=== PATIENT | male | born 1965 | race Caucasian/White ===

== ENCOUNTER 2018-12-03 09:11 | Emergency (ER) | payer OTHER ==
[~2018-12-03] VITALS: Ht 182.9 cm; Wt 92.5 kg
[~2018-12-03 09:11] MED LIST: ACET500 PO; ALBU90I INH; ALBU90OI INH; ALBU90OI6 INH; AZIT250 PO; DIPH50 PO; FLUSAL5005 IH; FLUT110OIA INH; IBUP800 PO; NAPR500 PO; NICO21TP; PRED20 PO; TRAM50 PO
[2018-12-03 10:20] LABS: BASOPHILS ABSOLUTE AUTO 0.05 K/mm3 (0.00-0.23); BASOPHILS PERCENT AUTO 1 % (0-2); EOSINOPHILS ABSOLUTE AUTO 0.38 K/mm3 (0.00-0.68); EOSINOPHILS PERCENT AUTO 6 % (0-6); Hematocrit 43.4 % (37.0-53.0); Hemoglobin 13.8 g/dL (13.5-17.5); IMMATURE GRAN ABSOLUTE AUTO 0.02 K/mm3 (0.00-0.10); IMMATURE GRAN PERCENT AUTO 0 % (0-1); LYMPHOCYTES ABSOLUTE AUTO 1.19 K/mm3 (0.84-5.20); LYMPHOCYTES PERCENT AUTO 18 % (21-46); MONOCYTES ABSOLUTE AUTO 0.46 K/mm3 (0.16-1.47); MONOCYTES PERCENT AUTO 7 % (4-13); Mean Corpuscular HGB 29.9 pg (26.0-34.0); Mean Corpuscular HGB Conc 31.8 g/dL (31.5-36.5); Mean Corpuscular Volume 94 fL (80-100); Mean Platelet Volume 12.1 fL (9.1-12.4); NEUTROPHILS ABSOLUTE AUTO 4.38 K/mm3 (1.96-9.15); NEUTROPHILS PERCENT AUTO 68 % (41-73); Platelet Count 144 K/mm3 (150-400); RDW Coefficient Variation 12.3 % (11.7-14.2); RDW Standard Deviation 42.5 fL (35.1-46.3); Red Blood Cell Count 4.61 M/mm3 (4.30-5.90); White Blood Cell Count 6.48 K/mm3 (4.00-11.30)
[2018-12-03 10:48] LABS: Alanine Aminotransfer (ALT/SGP 28 U/L (12-78); Albumin/Globulin Ratio 1.1 (0.8-1.8); Alk Phos 58 U/L (50-136); Anion Gap 7 mmol/L (6-16); Aspartate Aminotrans (AST/SGOT 23 U/L (12-37); Bilirubin, Total 0.3 mg/dL (0.1-1.0); Blood Urea Nitrogen 17 mg/dL (8-24); Bun/Creatinine Ratio 17.2 (12.0-20.0); CO2, Blood 26 mmol/L (21-32); Calcium, Blood 8.6 mg/dL (8.5-10.1); Chloride, Blood 107 mmol/L (98-108); Creatinine, Blood 0.99 mg/dL (0.60-1.20); Globulin, Blood 3.6 g/dL (2.2-4.0); Glomerular Filtration Rate >60 (60-); Glucose, Blood 94 mg/dL (70-99); Sodium, Blood 140 mmol/L (136-145); Total Protein, Blood 7.6 g/dL (6.4-8.2); Troponin I <0.015 ng/mL (0.000-0.040)
[2018-12-03] MEDS ORDERED: Motion Sickness25 M1 PO (11:56)
== END 2018-12-03 12:19 | disposition home or self-care (01) ==
LOC: ER 09:11
PROVIDERS: Emergency Medicine
DX: R42 Dizziness and giddiness (principal); J45.909 Unspecified asthma, uncomplicated
CPT/HCPCS: 36415; 70450; 80053; 84484; 85025; 93005; 93010; 99284-25

== ENCOUNTER 2019-04-02 06:59 | Observation (INO) | payer OTHER ==
[~2019-04-02] VITALS: Ht 182.9 cm; Wt 92.5 kg
[~2019-04-02 06:59] MED LIST changes: +Motion Sickness25 M1 PO
[2019-04-02] MEDS ORDERED: Prinivil10 MG PO (07:12)
[2019-04-02] MEDS ORDERED: MONT10T PO (07:12)
[2019-04-02] MEDS ORDERED: FLUT1DIS5 INH (07:13)
--- NOTE | 2019-04-02 09:30 | NUR ---
ARRIVAL TO UNIT PT ARRIVES, NO C/O RESP DISTRESS. DEINES SOB, CP, TROUBLES BREATHING. ABLE TO SPEAK FULL SENTENCES.
--- NOTE | 2019-04-02 10:00 | NUR ---
HTN PT FOUND TO BE HYPERTENSIVE, STATES HE HAS NOT BEEN ABLE TO TAKE HIS BP MED TODAY DUE TO INABILITY TO SWALLOW SINCE YESTERDAY AT 9AM.
--- NOTE | 2019-04-02 12:22 | NUR ---
PT TO DAY SURGERY VIA [facility]
--- NOTE | 2019-04-02 12:46 | NUR ---
History, Chart, Medications and Allergies reviewed before start of procedure. Lungs clear T/O to Auscultation. Patient confirms NPO status and agrees with scheduled surgery. Pre-Op teaching done. Pt verbalizes understanding. Pt picked up from room 217 on surgical floor. , Florina, at bedside. Pt reports having this problem in the past and is familiar with the procedure.
--- NOTE | 2019-04-02 12:59 | NUR ---
04/02/19 1259 Ruby Del Castillo History, Chart, Medications and Allergies reviewed before start of procedure. PATIENT CONFIRMS NPO STATUS AND AGREES WITH SCHEDULED PROCEDURE. MONITOR INTACT WITH CONTINUOUS PULSE OXIMETRY AND INTERMITTENT BP. 3-LEAD EKG REVIEWED WITH PHYSICIAN PRIOR TO START OF PROCEDURE. TO OR [address] GUERRERO.
--- NOTE | 2019-04-02 15:22 | NUR ---
POST OP PT ARRIVED TO ROOM POST EGD AT 1425. DENIES NAUSEA, UPSET STOMACH, OR STOMACH PAIN. C/O SORE THROAT. PT BEGAN WITH SIPS OF WATER AND SMALL BITES OF JELLO. POPSICKLE GIVEN. PT ALLOWED 15 MINS AFTER THIS. NO N/V, OR INCREASE IN PAIN. PUDDING GIVEN. TOLERATING WELL. HOSPITALIST CALLED AND UPDATED ON PT.
[2019-04-02] MEDS ORDERED: Prilosec Otc20 MG PO (16:10)
--- NOTE | 2019-04-02 16:20 | NUR ---
DISCHARGE PT HAS DONE WELL POST OP. TOLERATING CLEAR LQS THEN ADVANCED TO FULL. AMBUALTING, VOIDING, ONLY C/O SORE THROAT BUT IMPROVING.
== END 2019-04-02 16:18 | disposition home or self-care (01) ==
LOC: ER 06:59 → SURS 07:00
PROVIDERS: Student in an Organized Health Care Education/Training Program; ADMIT Internal Medicine
PROC: 0DC38ZZ Extirpation of Matter from Lower Esophagus, Via Natural or Artificial Opening Endoscopic (ICD-10-PCS; principal; 2019-04-02 12:30)
PROC: 0DB38ZX Excision of Lower Esophagus, Via Natural or Artificial Opening Endoscopic, Diagnostic (ICD-10-PCS; principal; 2019-04-02 12:30)
PROC: 0DB18ZX Excision of Upper Esophagus, Via Natural or Artificial Opening Endoscopic, Diagnostic (ICD-10-PCS; principal; 2019-04-02 12:30)
DX: T18.128A Food in esophagus causing other injury, initial encounter (principal); K22.70 Barrett's esophagus without dysplasia; K20.9 Esophagitis, unspecified; K44.9 Diaphragmatic hernia without obstruction or gangrene; J45.909 Unspecified asthma, uncomplicated; F17.220 Nicotine dependence, chewing tobacco, uncomplicated; Z79.899 Other long term (current) drug therapy
CPT/HCPCS: 88305; 88312; 96372; 96374; 96375; 99284-25; C9113; G0378; J0330; J0360; J1610; J2704; J3010; J7120

== ENCOUNTER 2019-06-18 10:28 | Emergency (ER) | payer OTHER ==
[~2019-06-18] VITALS: Ht 182.9 cm; Wt 90.7 kg
[~2019-06-18 10:28] MED LIST changes: +FLUT1DIS5 INH; +MONT10T PO; +Prilosec Otc20 MG PO; +Prinivil10 MG PO
[2019-06-18] MEDS ORDERED: Pepcid20 MG PO (11:05)
== END 2019-06-18 11:20 | disposition home or self-care (01) ==
LOC: ER 10:28
DX: K20.9 Esophagitis, unspecified (principal); K22.70 Barrett's esophagus without dysplasia; Z79.899 Other long term (current) drug therapy; I10 Essential (primary) hypertension; J45.909 Unspecified asthma, uncomplicated; F17.220 Nicotine dependence, chewing tobacco, uncomplicated
CPT/HCPCS: 99283

== ENCOUNTER 2019-11-20 08:26 | Day surgery (SDC) | payer OTHER ==
[~2019-11-20] VITALS: Ht 182.9 cm; Wt 91.1 kg
[~2019-11-20 08:26] MED LIST changes: +FLUTICASONE-SA1 EAC4 INH; +Flovent Disku250 MCG INH; +LISI20 PO; +MONTELUKAST SOD10 MG PO; +NICOTINE1 EAC1 TOP; +Nicorette4 MG BC; +PEPCID40 MG PO; +PROAIR DIGIHAL90 MCG INH; +Pepcid20 MG PO
== END 2019-11-20 11:35 | disposition home or self-care (01) ==
LOC: ORSCSDS 08:26
PROVIDERS: Student in an Organized Health Care Education/Training Program
PROC: 0DB68ZX Excision of Stomach, Via Natural or Artificial Opening Endoscopic, Diagnostic (ICD-10-PCS; principal; 2019-11-20 10:15)
PROC: 0DB58ZX Excision of Esophagus, Via Natural or Artificial Opening Endoscopic, Diagnostic (ICD-10-PCS; principal; 2019-11-20 10:15)
DX: K22.70 Barrett's esophagus without dysplasia (principal); K21.9 Gastro-esophageal reflux disease without esophagitis; K44.9 Diaphragmatic hernia without obstruction or gangrene; K29.70 Gastritis, unspecified, without bleeding; I10 Essential (primary) hypertension; J45.909 Unspecified asthma, uncomplicated; F17.220 Nicotine dependence, chewing tobacco, uncomplicated; J45.20 Mild intermittent asthma, uncomplicated; Z79.899 Other long term (current) drug therapy
CPT/HCPCS: 88305; 88342; J2704; J7120

== ENCOUNTER → 2020-05-14 | Outpatient (CLI) | payer OTHER ==
[2020-05-14 20:41] LABS: Alanine Aminotransfer (ALT/SGP 28 U/L (12-78); Albumin/Globulin Ratio 1.1 (0.8-1.8); Alk Phos 53 U/L (50-136); Anion Gap 4 mmol/L (6-16); Aspartate Aminotrans (AST/SGOT 26 U/L (12-37); Bilirubin, Total 0.4 mg/dL (0.1-1.0); Blood Urea Nitrogen 13 mg/dL (8-24); Bun/Creatinine Ratio 14.9 (12.0-20.0); CHOL/HDL RATIO 3.4; CO2, Blood 25 mmol/L (21-32); Calcium, Blood 8.8 mg/dL (8.5-10.1); Chloride, Blood 110 mmol/L (98-108); Cholesterol 244 mg/dL (50-200); Creatinine, Blood 0.87 mg/dL (0.60-1.20); Globulin, Blood 3.7 g/dL (2.2-4.0); Glomerular Filtration Rate >60 (60-); Glucose, Blood 87 mg/dL (70-99); HDL Cholesterol 71 mg/dL (>39); LDL/HDL RATIO 2.2; Low Density Lipoprotein Chol 154 mg/dL (0-110); Potassium, Blood 4.1 mmol/L (3.5-5.5); Prostate Specific Antigen 0.873 ng/mL (0.000-4.000); Sodium, Blood 139 mmol/L (136-145); Total Protein, Blood 7.7 g/dL (6.4-8.2); Triglycerides 93 mg/dL (30-160); Very Low Density Lipoprot Chol 18 mg/dL (6-32)
== END | disposition home or self-care (01) ==
LOC: LAB SHORT 19:29 → LAB 19:29
PROVIDERS: Family Medicine
DX: Z12.5 Encounter for screening for malignant neoplasm of prostate (principal); I10 Essential (primary) hypertension
CPT/HCPCS: 80053; 80061; 84443; G0103

== ENCOUNTER 2022-06-10 22:33 | Emergency (ER) | payer OTHER ==
[~2022-06-10] VITALS: Ht 182.9 cm; Wt 98.4 kg
[2022-06-10] MEDS ORDERED: PRED20 PO ×2 (23:24→23:50)
== END 2022-06-10 23:54 | disposition home or self-care (01) ==
LOC: ER 22:33
DX: J45.901 Unspecified asthma with (acute) exacerbation (principal); I10 Essential (primary) hypertension; Z87.891 Personal history of nicotine dependence; Z79.899 Other long term (current) drug therapy; Z79.52 Long term (current) use of systemic steroids
CPT/HCPCS: 94640; 94664; A9270; J7512

== ENCOUNTER → 2025-05-15 | Outpatient (CLI) | payer SELFPAY ==
[2025-05-15 19:22] LABS: LDL/HDL RATIO 1.1; Very Low Density Lipoprot Chol 14 mg/dL (6-32)
[2025-05-15 19:23] LABS: Alanine Aminotransfer (ALT/SGP 31 U/L (12-78); Albumin, Blood 4.1 g/dL (3.4-5.0); Albumin/Globulin Ratio 1.1 (0.8-1.8); Anion Gap 9 mmol/L (3-11); Aspartate Aminotrans (AST/SGOT 24 U/L (12-37); Bilirubin, Total 0.3 mg/dL (0.1-1.0); Blood Urea Nitrogen 22 mg/dL (8-24); CHOL/HDL RATIO 2.2; CO2, Blood 25 mmol/L (21-32); Calcium, Blood 9.2 mg/dL (8.5-10.1); Chloride, Blood 108 mmol/L (98-108); Cholesterol 205 mg/dL (50-200); Creatinine, Blood 0.97 mg/dL (0.60-1.20); Globulin, Blood 3.8 g/dL (2.2-4.0); Glucose, Blood 97 mg/dL (70-99); HDL Cholesterol 93 mg/dL (>39); Low Density Lipoprotein Chol 98 mg/dL (0-110); Potassium, Blood 4.4 mmol/L (3.5-5.5); Sodium, Blood 138 mmol/L (136-145); Total Protein, Blood 7.9 g/dL (6.4-8.2); Triglycerides 71 mg/dL (30-160)
[2025-05-15 21:13] LABS: BASOPHILS ABSOLUTE AUTO 0.08 K/mm3 (0.00-0.23); BASOPHILS PERCENT AUTO 1 % (0-2); EOSINOPHILS ABSOLUTE AUTO 0.42 K/mm3 (0.00-0.68); EOSINOPHILS PERCENT AUTO 6 % (0-6); Hematocrit 41.7 % (37.0-53.0); Hemoglobin 13.8 g/dL (13.5-17.5); IMMATURE GRAN ABSOLUTE AUTO 0.04 K/mm3 (0.00-0.10); IMMATURE GRAN PERCENT AUTO 1 % (0-1); LYMPHOCYTES ABSOLUTE AUTO 1.11 K/mm3 (0.84-5.20); LYMPHOCYTES PERCENT AUTO 15 % (21-46); MONOCYTES ABSOLUTE AUTO 0.60 K/mm3 (0.16-1.47); MONOCYTES PERCENT AUTO 8 % (4-13); Mean Corpuscular HGB Conc 33.1 g/dL (31.5-36.5); Mean Corpuscular Volume 91 fL (80-100); NEUTROPHILS ABSOLUTE AUTO 5.38 K/mm3 (1.96-9.15); NEUTROPHILS PERCENT AUTO 71 % (41-73); NRBC ABSOLUTE 0.00 K/mm3 (0.00-0.02); NRBC Auto 0.0 /100 WBC (0.0-0.2); RDW Coefficient Variation 13.4 % (11.7-14.2); RDW Standard Deviation 44.7 fL (35.1-46.3)
== END ==
LOC: LAB 18:55 → LAB SHORT 18:55
PROVIDERS: Nurse Practitioner Family
DX: E78.5 Hyperlipidemia, unspecified (principal); I10 Essential (primary) hypertension
CPT/HCPCS: 80053; 80061; 85025